=== PATIENT | female | born 1970 | race American Indian/Alaskan Native ===

== ENCOUNTER 2017-02-16 18:23 | Emergency (ER) | payer OTHER ==
[2017-02-16 18:27] VITALS: BMI 31.1
[2017-02-16 18:28] VITALS: BP 125/85; PULSE 94; RESP 18; TEMP 98.4; O2SAT 100
[2017-02-16] MEDS ORDERED: Tetanus/Diphtheria Toxoids 0.5 ml Syringe IM ONE (19:32)
[2017-02-16] MEDS ORDERED: Lidocaine 1% Inj (20ml) ONE (19:33)
--- NOTE | 2017-02-16 19:51 | C.PDOC ---
History Of Present Illness 47 y/o female presents to ED with complaint of wooden foreign body to left second finger, sustained while cleaning her cabinet at home. Patient notes she was unable to remove the foreign body due to pain. Otherwise, denies any other injuries, new weakness or numbness, drainage from the site, or other associated symptoms. Notes she is not UTD with tetanus vaccination. Time Seen by Provider: 02/16/17 19:14 Chief Complaint (Nursing): Foreign Body History Per: Patient History/Exam Limitations: no limitations Onset/Duration Of Symptoms: Other (just prior to arrival) Current Symptoms Are (Timing): Still Present Recent travel outside of the [place]: No Past Medical History Reviewed: Historical Data, Nursing Documentation, Vital Signs Vital Signs: Last Vital Signs Temp 98.4 F 02/16/17 18:27 Pulse 94 H 02/16/17 18:27 Resp 18 02/16/17 18:27 BP 125/85 02/16/17 18:27 Pulse Ox 100 02/17/17 03:42 Family History: States: Unknown Family Hx - Social History Hx Alcohol Use: No Hx Substance Use: No - Immunization History Hx Tetanus Toxoid Vaccination: No Hx Influenza Vaccination: No Hx Pneumococcal Vaccination: No Review Of Systems Except As Marked, All Systems Reviewed And Found Negative. Constitutional: Negative for: Fever, Chills Skin: Positive for: Other (foreign body - left 2nd digit) Neurological: Negative for: Weakness, Numbness Physical Exam - Physical Exam Appears: Non-toxic, No Acute Distress Skin: Warm, Dry Head: Atraumatic, Normacephalic Extremity: Normal ROM, Capillary Refill (< 2 sec. ), No Deformity, No Swelling, Other (3.0 cm wooden splinter foreign body protruding from volar aspect of mid left index finger, no surrounding swelling or erythema, distal pulses intact, no drainage) Extremity: Bilateral: Normal Color And Temperature Pulses: Left Dorsalis Pedis: Normal, Right Dorsalis Pedis: Normal Neurological/Psych: Oriented x3, Normal Motor, Normal Sensation ED Course And Treatment O2 Sat by Pulse Oximetry: 100 (RA) Pulse Ox Interpretation: Normal - Other Rad Left Hand 2nd Digit XR (post removal) X-Ray: Interpreted by Me, Viewed By Me Interpretation: no foreign body Progress Note: Tetanus vaccination administered. Left 2nd finger anesthesized with 1%lidocaine, no epi. Attempted to manipulate splinter manually, but was unable to remove. 15 gauge blade used to make a small incision along the line of the splinter foreign body. Splinter was easily removed and was intact. Incision area irrigated; bacitracin and dressing applied. Post-removal x-ray ordered and reviewed showing no foreign body. Patient tolerated the procedure well. On reassessment, patient is resting comfortably, and is in no acute distress. Patient instructed to follow up with clinic/PMD within 1-2 days and was instructed on appropriate wound care and return precautions. Procedure: Blank - Time Out Time Out: Side verified, Site verified, Patient ID confirmed - Procedure Procedure:: Removal of foreign body (further detail in progress note) - Consent obtained: Consent obtained: Verbal - Performed by: Performed by:: Mid-level provider - Anesthetic Technique Anesthetic Technique: Regional block (digital (Left 2nd)) - Topical: Local/Regional Anesthetic:: Lidocaine 1% - Location Location: Left Finger:: Index - Needle Size Needle Size:: 25 - Result Result: Successful - Post-Procedure Post-procedure:: Hemostasis achieved, Dressing applied, Other (X-ray performed, no foreign body. ) - Patient Tolerated Procedure Patient Tolerated Procedure:: Well Disposition Counseled Patient/Family Regarding: Diagnosis, Need For Followup - Disposition Disposition: HOME/ ROUTINE Disposition Time: 20:18 Condition: STABLE Additional Instructions: Please follow up with PMD Apply bacitracin or neosporin oint Return to ER if swelling, redness, discharge or worse Instructions: Soft Tissue Foreign Body (ED) - Clinical Impression Clinical Impression: Foreign body finger - PA / HOSPITAL MORTICIAN / Resident Statement MD/DO has reviewed & agrees with the documentation as recorded. - Scribe Statement The provider has reviewed the documentation as recorded by the Mary Luke Provider Scribe Attestation: All medical record entries made by the Mary were at my direction and personally dictated by me. I have reviewed the chart and agree that the record accurately reflects my personal performance of the history, physical exam, medical decision making, and the department course for this patient. I have also personally directed, reviewed, and agree with the discharge instructions and disposition.
[2017-02-16] MEDS ORDERED: Bacitracin 500 Units/gm Oint Foilpak UD ONE (19:55)
--- NOTE | 2017-02-17 09:09 | RAD ---
Left hand 2nd digit three views History: Foreign body. Comparison: None available. Findings: Soft tissue swelling at the level of the left 2nd digit. No evidence for acute displaced fracture or dislocation. No discrete radiopaque foreign body identified. Impression: Negative acute. If pain persists, consider MRI.
== END 2017-02-16 20:27 | disposition home or self-care (01) ==
LOC: C.ER 18:23
DX: S60.451A Superficial foreign body of left index finger, initial encounter (principal); W45.8XXA Other foreign body or object entering through skin, initial encounter; Y93.E9 Activity, other interior property and clothing maintenance; Y92.009 Unspecified place in unspecified non-institutional (private) residence as the place of occurrence of the external cause

== ENCOUNTER 2019-01-09 13:06 | Outpatient (CLI) | payer OTHER | END 2019-01-09 13:07 | disposition home or self-care (01) | LOC: C.USIC 13:06 | DX: Z01.411 Encounter for gynecological examination (general) (routine) with abnormal findings (principal) ==